=== PATIENT | male | born 1955 | race Caucasian/White ===

== ENCOUNTER → 2017-04-05 | Outpatient (CLI) | payer BC ==
[~2017-04-05] MED LIST: UNABLE
== END | disposition home or self-care (01) ==
LOC: C.RDSM 11:50
PROVIDERS: ATTEND Family Medicine
DX: S69.91XA Unspecified injury of right wrist, hand and finger(s), initial encounter (principal); M25.532 Pain in left wrist; M79.632 Pain in left forearm; X58.XXXA Exposure to other specified factors, initial encounter

== ENCOUNTER → 2017-04-15 | Outpatient (CLI) | payer BC ==
--- NOTE | 2017-04-15 19:08 | DIAGNOSTIC IMAGING REPORT ---
CHEST 2 VIEWS ROUTINE CLINICAL HISTORY: PNEUMONITIS COMPARISON STUDY: 08/08/2015 FINDINGS: The cardiac and mediastinal contours are normal. There is no evidence of focal pulmonary consolidation. There is no evidence of failure. No pleural effusions are visualized.[ IMPRESSION: No active disease in the chest. Electronically signed by: Rony Aleman M.D. 04/15/2017 7:07 PM Dictated Date/Time: 04/15/2017 7:06 PM
== END | disposition home or self-care (01) ==
LOC: C.RAD 18:55
PROVIDERS: ATTEND Family Medicine
DX: J18.9 Pneumonia, unspecified organism (principal)